=== PATIENT | female | born 1985 | race Caucasian/White ===

== ENCOUNTER 2016-10-14 14:40 | Emergency (ER) | payer SELFPAY ==
[~2016-10-14 14:40] MED LIST: ALBUTEROL NEBULIZER INH; ALBUTEROL SULF8.5 G2 IH; ALBUTEROL0.63 MG/1 INH; ALBUTEROL0.83 MG/ML INH; ALBUTEROL17 GM; ALBUTEROL2.5 MG/3 M IH; ALBUTEROL2.5 MG/3 M INH; DELTASONE50 MG PO; DIAMOX250 MG/TAB PO; DOXYCYCLINE HY100 MG PO; HYDROCODONE; IBUPROFEN400 MG PO; IUD BIRTH CONTROL; NORCO 5/3251 TAB PO; PHENERGAN W/CODEINE PO; PHENERGAN25 MG PO; PREDNISONE10 M1 PO; PREDNISONE20 M1 PO; PREDNISONE20 MG PO; PREDNISONE50 M1 PO; PRENATAL VITAMI1 TAB; PROAIR HFA8.5 GM IH; PROAIR HFA8.5 GM INH; PROMETH-CODEIN 65 ML PO; PROVENTIL HFA6.7 G1 IH; PROVENTIL17 GM IH; PROVENTIL17 GM INH; PULMICORT0.5 MG/22 INH; PYRIDIUM200 MG PO; SEPTRA DS TABLE1 TAB PO; SINGULAIR10 M1 PO; TYLENOL500 MG PO; ZANAFLEX4 M PO; ZITHROMAX250MG Z-PAK PO; ZITHROMAX500 M2 PO; ZYRTEC10 M7 PO
== END 2016-10-14 18:15 | disposition left against medical advice (07) ==
LOC: EDMED 14:40
DX: Z53.21 Procedure and treatment not carried out due to patient leaving prior to being seen by health care provider (principal)